=== PATIENT | male | born 1960 | race African-American/Black ===

== ENCOUNTER 2017-10-08 08:21 | Emergency (ER) | payer BC ==
[~2017-10-08] VITALS: Ht 177.8 cm; Wt 97.5 kg
[~2017-10-08 08:21] MED LIST: VYVANSE30 MG ORAL
[2017-10-08] MEDS ORDERED: TRAZODONE HCL50 MG ORAL (08:31)
[2017-10-08 08:42] VITALS: BP 120/73
--- NOTE | 2017-10-08 09:17 | Emergency Room Report ---
History of Present Illness General Chief Complaint: Headache Source: Patient Present Illness HPI 57-year-old male presents ED complaining of headache. States he has had a headache every morning for the last 4 days. Woke him up around 3 in the morning. Persisted for approximately 2-3 hours and resolved. Notes pain above his left eye, 7 out of 10, throbbing, nonradiating. Denies photophobia or blurry vision. Denies neck stiffness. Denied fevers or chills. Denies nausea or vomiting. Denies any headache at this time. States his several years ago from a brain aneurysm. He is concerned about brain aneurysm at this time. Denies any blood thinners. States that he was recently prescribed trazodone for sleep by his PMD. No other aggravating or relieving factors. Denies any other associated symptoms Allergies: Coded Allergies: No Known Allergies (Unverified , 04/03/15) Patient History Past Medical History: none Past Surgical History: none Pertinent Family History: none Social History: Denies: smoking, alcohol use, drug use Immunizations: UTD Reviewed Nursing Documentation: PMH: Agreed; PSxH: Agreed Review of Systems All Other Systems: negative except mentioned in HPI Physical Exam Vital Signs Date Time Temp Pulse Resp B/P (MAP) Pulse Ox O2 Delivery O2 Flow Rate FiO2 10/08/17 08:25 98.2 72 16 108/84 97 Room Air 98.2 Sp02 EP Interpretation: reviewed, normal General Appearance: no apparent distress, alert, GCS 15, non-toxic Head: normocephalic, atraumatic Eyes: bilateral eye normal inspection, bilateral eye PERRL ENT: hearing grossly normal, normal pharynx, no angioedema, normal voice Neck: full range of motion, supple, no meningismus, supple/symm/no masses Respiratory: chest non-tender, lungs clear, normal breath sounds, speaking full sentences Cardiovascular #1: regular rate, rhythm, no edema Cardiovascular #2: 2+ carotid (R), 2+ carotid (L), 2+ radial (R), 2+ radial (L) , 2+ dorsalis pedis (R), 2+ dorsalis pedis (L) Gastrointestinal: normal bowel sounds, non tender, soft, non-distended, no guarding, no rebound Rectal: deferred Genitourinary: normal inspection, no CVA tenderness Musculoskeletal: back normal, gait/station normal, normal range of motion, non- tender Neurologic: alert, oriented x3, responsive, motor strength/tone normal, sensory intact, speech normal Psychiatric: judgement/insight normal, memory normal, mood/affect normal, no suicidal/homicidal ideation Reflexes: 3+ bicep (R), 3+ bicep (L), 3+ tricep (R), 3+ tricep (L), 3+ knee (R) , 3+ knee (L) Skin: normal color, no rash, warm/dry, well hydrated Lymphatic: no adenopathy Medical Decision Making Diagnostic Impression: Primary Impression: Headache Qualified Codes: R51 - Headache ER Course Hospital Course 77-year-old male presents ED complaining of headaches worsen the morning for last 4 days. Differential diagnoses include: aneurysm, brain bleed, migraine Clinical course Patient placed on stretcher. After initial history and physical I ordered MRI/ MRA MRI/MRA unremarkable for acute process or aneurysm. Reassurance given to patient. Patient was worried because his from brain aneurysm. States he will follow-up with his PMD as outpatient Diagnosis - headache Stable and discharged to home with Rx Ivetirn. Followup with PMD. Return to ED if symptoms recur or worsen CT/MRI/US Diagnostic Results CT/MRI/US Diagnostic Results #1: Imaging Test Ordered: MRI BRain Impression no acute process CT/MRI/US Diagnostic Results #2: Imaging Test Ordered: MRA Brain Impression no acute process Last Vital Signs Date Time Temp Pulse Resp B/P (MAP) Pulse Ox O2 Delivery O2 Flow Rate FiO2 10/08/17 08:42 97.5 73 15 120/73 97 Room Air 97.5 Status: improved Disposition: HOME, SELF-CARE Condition: Stable Scripts Ibuprofen* (MOTRIN*) 600 Mg Tablet 600 MG ORAL Q8H PRN for For Pain, #30 TAB 0 Refills Prov: Marco Antonio Burnham MD 10/08/17 Referrals: NOT CHOSEN [facility]/,REFERRING (PCP) Marco Antonio Burnham MD Oct 08, 2017 09:17
--- NOTE | 2017-10-08 10:41 | Diagnostic Imaging Report ---
Indication: Headache Technique: The head was imaged in a 1.5 Tianna magnet. Sequences obtained include sagittal and axial T1 FLAIR, axial T2 fast spin echo with fat saturation, axial T2 FLAIR, diffusion and ADC map. 3-D wbiv-wu-osjcdt of the brain Comparison: None Findings: The size, contour, and configuration of the sulci, ventricles, and basal cisterns appear normal. Almonte-white differentiation is normal. There is no restricted diffusion. There is no mass effect, midline shift, edema, or hemorrhage. There are no abnormal extra-axial or intra-axial fluid collections. The corpus callosum is unremarkable. The brainstem and cerebellum are unremarkable. The sella is unremarkable. Bone marrow signal within the visualized osseous structures appears age appropriate and unremarkable otherwise. 3-D gzfv-os-ezuopk demonstrates no vascular malformation or aneurysm. No significant stenosis or occlusion identified. The anterior cerebral arteries are asymmetric with much larger right LEONA both involving A1 and A2 segments. There is no demonstrated anterior communicating artery. No demonstrated posterior communicating arteries. Impression: No mass effect, midline shift or edema. No evidence of acute CVA. No significant abnormalities on MRA. Asymmetric LEONA noted as discussed above.
--- NOTE | 2017-10-08 10:41 | Diagnostic Imaging Report ---
Indication: Headache Technique: The head was imaged in a 1.5 Tianna magnet. Sequences obtained include sagittal and axial T1 FLAIR, axial T2 fast spin echo with fat saturation, axial T2 FLAIR, diffusion and ADC map. 3-D usjl-lc-mzpgfc of the brain Comparison: None Findings: The size, contour, and configuration of the sulci, ventricles, and basal cisterns appear normal. Almonte-white differentiation is normal. There is no restricted diffusion. There is no mass effect, midline shift, edema, or hemorrhage. There are no abnormal extra-axial or intra-axial fluid collections. The corpus callosum is unremarkable. The brainstem and cerebellum are unremarkable. The sella is unremarkable. Bone marrow signal within the visualized osseous structures appears age appropriate and unremarkable otherwise. 3-D [id number]-wx-wgcuzz demonstrates no vascular malformation or aneurysm. No significant stenosis or occlusion identified. The anterior cerebral arteries are asymmetric with much larger right LEONA both involving A1 and A2 segments. There is no demonstrated anterior communicating artery. No demonstrated posterior communicating arteries. Impression: No mass effect, midline shift or edema. No evidence of acute CVA. No significant abnormalities on MRA. Asymmetric LEONA noted as discussed above.
[2017-10-08] MEDS ORDERED: IBUPROFEN600 MG ORAL (11:04)
[2017-10-08 11:10] VITALS: BP 132/68
== END 2017-10-08 11:10 | disposition home or self-care (01) ==
LOC: EMR 08:34
DX: R51 Headache (principal)
CPT/HCPCS: 70544; 70551; 99284

== ENCOUNTER 2018-03-31 01:15 | Emergency (ER) | payer BC ==
[~2018-03-31] VITALS: Ht 177.8 cm; Wt 95.3 kg
[~2018-03-31 01:15] MED LIST changes: +IBUPROFEN600 MG ORAL; +TRAZODONE HCL50 MG ORAL
[2018-03-31 01:42] VITALS: BP 129/85
[2018-03-31] MEDS ORDERED: CEPHALEXIN500 MG ORAL (03:29)
[2018-03-31] MEDS ORDERED: VOLTAREN100 G1 TP (03:29)
[2018-03-31] MEDS ORDERED: IBUPROFEN600 MG ORAL (03:29)
[2018-03-31 03:45] VITALS: BP 129/85
--- NOTE | 2018-03-31 04:26 | Emergency Room Report ---
History of Present Illness General Chief Complaint: Skin Rash/Abscess Source: Patient Present Illness HPI 88-year-old male presents ED for evaluation. Complaining of right thumb pain. Started yesterday morning when he woke up. Cannot recall any injury. States pain is throbbing, 7 out of 10, nonradiating. Also feels like his thumb is swollen. Not sure if it is infected. Patient called the nurse hotline for his insurance company and they thought he might have gout. Denies any family history of gout. Denies fevers or chills. No other aggravating relieving factors. Denies any other associated symptoms Allergies: Coded Allergies: No Known Allergies (Unverified , 04/03/15) Patient History Past Medical History: psych hx Past Surgical History: none Pertinent Family History: none Social History: Denies: smoking, alcohol use, drug use Immunizations: UTD Reviewed Nursing Documentation: PMH: Agreed; PSxH: Agreed Nursing Documentation-PMH Past Medical History: No Stated History History Of Psychiatric Problem: Yes - adhd, insomnia Review of Systems All Other Systems: negative except mentioned in HPI Physical Exam Vital Signs Date Time Temp Pulse Resp B/P (MAP) Pulse Ox O2 Delivery O2 Flow Rate FiO2 03/31/18 01:22 98.2 88 16 129/85 95 Room Air Sp02 EP Interpretation: reviewed, normal General Appearance: no apparent distress, alert, GCS 15, non-toxic Head: normocephalic Eyes: bilateral eye normal inspection, bilateral eye PERRL ENT: normal ENT inspection Neck: normal inspection Respiratory: normal inspection Cardiovascular #1: normal inspection Gastrointestinal: normal inspection Rectal: deferred Genitourinary: no CVA tenderness Musculoskeletal: swelling - R thumb, tender - TTP to palmar aspect DIP joint thumb. no crepitus/bruising/fluctuance Neurologic: alert, oriented x3, responsive, motor strength/tone normal, sensory intact, speech normal Psychiatric: normal inspection Skin: normal inspection Lymphatic: normal inspection Procedures Splinting Splinting : Consent: Verbal Pre-Made Type: velcro Splint: thumb spica Pre-Proc Neuro Vasc Exam: normal Post-Proc Neuro Vasc Exam: normal Patient Tolerated: Well Complications: None Medical Decision Making Diagnostic Impression: Primary Impression: Thumb pain Qualified Codes: M79.644 - Pain in right finger(s) ER Course Hospital Course 58-year-old M presents to ED complaining of R thumb pain/swelling Differential diagnoses include: Fracture, dislocation, sprain, contusion Clinical course Patient placed on stretcher. After initial history and physical, I ordered pain medications and Xrays of R thumb Xrays prelim read shows no acute fracture/dislocation. noticeable soft tissue swelling Discussed findings with patient. Consideration for processes such as gout as well as felon/cellulitis. There is no erythema or fluctuance. There is not tenderness at the finger pad. Placed in thumb spica splint. We'll discharge with ibuprofen, Keflex. We'll provide hand referrals. Diagnosis - thumb pain Stable and discharged to home with prescription for Motrin, keflex. apply ice, keep elevated. weight bear as tolerated. Followup with PMD/hand. Return to ED if symptoms recur or worsen Other X-Ray Diagnostic Results Other X-Ray Diagnostic Results : X-Ray ordered: R hand # of Views/Limited Vs Complete: 3 View Indication: Pain EP Interpretation: Yes Interpretation: no dislocation, no fractures, other - + thumb soft tissue swelling Impression: No acute disease Electronically Signed by: Electronically signed by Marco Antonio Burnham MD Last Vital Signs Date Time Temp Pulse Resp B/P (MAP) Pulse Ox O2 Delivery O2 Flow Rate FiO2 03/31/18 03:45 98.6 79 16 129/85 95 Room Air Status: improved Disposition: HOME, SELF-CARE Condition: Stable Scripts Diclofenac Sodium (VOLTAREN) 100 Gm Gel..gram. 100 GM TP QID, #100 GM Prov: Marco Antonio Burnham MD 03/31/18 Cephalexin* (KEFLEX*) 500 Mg Capsule 500 MG ORAL EVERY 6 HOURS for 7 Days, CAP Prov: Marco Antonio Burnham MD 03/31/18 Ibuprofen* (MOTRIN*) 600 Mg Tablet 600 MG ORAL Q8H PRN for For Pain, #30 TAB 0 Refills Prov: Marco Antonio Burnham MD 03/31/18 Referrals: Pj Tapia MD NOT CHOSEN [facility]/,REFERRING (PCP) Jamison Marie MD Patient Instructions: Gout, [id number], Fingertip Infection Marco Antonio Burnham MD Mar 31, 2018 04:26
--- NOTE | 2018-03-31 09:59 | Diagnostic Imaging Report ---
Indication: Pain in right thumb for one week Technique: 3 views right hand Comparison: none Findings: No acute fractures. No dislocations. The joint spaces are preserved. No radiopaque foreign body demonstrated. Impression: Negative
== END 2018-03-31 03:45 | disposition home or self-care (01) ==
LOC: EMR 01:40
DX: M79.644 Pain in right finger(s) (principal); M79.89 Other specified soft tissue disorders
CPT/HCPCS: 29130; 99283